=== PATIENT | male | born 1995 | race Caucasian/White ===

== ENCOUNTER 2016-11-07 05:31 | Emergency (ER) | payer MEDICAID ==
[2016-11-07] MEDS ORDERED: Albuterol/Ipratropium Neb 3 ML AERS HHN ONE ×6 (05:34→07:26)
--- NOTE | 2016-11-07 05:57 | ED Physician Chart ---
Chief Complaint/HPI - Patient Information Date Seen:: 11/07/16 Time Seen:: 05:45 Chief Complaint:: shortness of breath History of Present Illness:: Patient developed shortness of breath and cough 2 days ago. His sputum has been yellow to brown. He denies fever. Patient is finishing his albuterol metered-dose inhaler. Allergies:: Allergies Allergy/AdvReac Type Severity Reaction Status Date / Time No Known Allergies Allergy Verified 11/07/16 05:35 Vitals:: Vital Signs - 8 hr 11/07/16 11/07/16 05:35 05:38 Temp 97.9 F HR 117 112 RR 23 20 BP 150/94 O2 Sat % 89 89 Historian:: Patient Review:: Nurse's Note Reviewed Review of Systems - Review of Systems General/Constitutional: No fever, No chills Skin: No skin lesions Head: No headache Eyes: No loss of vision ENT: No earache, Sore throat Neck: No neck pain, No swelling Cardio Vascular: No chest pain, No palpitations Pulmonary: SOB, Cough GI: No nausea, No vomiting, No diarrhea G/U: No dysuria Musculoskeletal: No bone or joint pain, No muscle pain Endocrine: No polyuria, No polydipsia Psychiatric: No prior psych history Hematopoietic: No bruising Allergic/Immuno: No urticaria Neurological: No syncope, No focal symptoms Past Medical History - Past Medical History Past Medical History: Asthma/COPD Family History: None Social History: Non Smoker, Alcohol, Other (drinks at least six pack of beer once a week) Surgical History: None Psychiatricy History: None Medication: Reviewed Family Medical History - Family Member Mother Ethnicity: Physical Exam - Physical Examination General/Constitutional: Well-developed, well-nourished, Alert, No distress Head: Atraumatic Eyes: Lids, conjuctiva normal, PERRL Skin: Nl inspection, No rash, No skin lesions, No ecchymosis, Well hydrated, No lymphadenopathy ENMT: External ears, nose nl, Lips, teeth, gums nl, Oropharynx nl Other ENMT comments:: Tonsils enlarged without exudate or increased erythema. Neck: No nuchal rigidity Respiratory: Nl effort/Exclusion Other Respiratory comments:: Decreased breath sounds and are 2 out of 4 extremity wheezing Cardio Vascular: RRR GI: No tenderness/rebounding/guarding : No CVA tenderness Extremities: Normal digits & nails Neuro/Psych: No focal deficits Misc: Normal back Assessment - Assessment General Assessment: At 0645 patient felt better but wished another breathing treatment; auscultation of the chest revealed 1.5/4 inspiratory and expiratory wheezing; pulse ox is 91% with deep breathing. Patient requested a prescription for albuterol solution as he has a machine at home. ED Septic Shock - . Is Septic Shock (SBP<90, OR Lactate>4 mmol\L) present?: No - <6hrs of presentation: Vital Signs: Vital Signs - 8 hr 11/07/16 11/07/16 05:35 05:38 Temp 97.9 F HR 117 112 RR 23 20 BP 150/94 O2 Sat % 89 89 Reassessment (Disposition) - Reassessment Reassessment Condition:: Improved - Diagnosis Diagnosis:: Acute viral syndrome; exacerbation asthma - Aftercare/Follow up Instructions Aftercare/Follow-Up Instructions:: Refer to Discharge Instructions Medication Prescribed:: Albuterol metered-dose inhaler to take 2 puffs every 4 hours when necessary prescribed; premature 60 mg daily for 4 days to take first dose tomorrow morning ; takes albuterol 2.5 mg per 3 mL normal saline 1 box #25 to use one every 4 hours as necessary - Patient Disposition Discharge/Transfer:: Home Condition at Disposition:: Stable, Improved
== END 2016-11-07 08:00 | disposition home or self-care (01) ==
LOC: ER 05:31
DX: J45.901 Unspecified asthma with (acute) exacerbation (principal); B34.9 Viral infection, unspecified; J44.9 Chronic obstructive pulmonary disease, unspecified
CPT/HCPCS: 94640; Z7502

== ENCOUNTER 2017-11-21 10:24 | Emergency (ER) | payer MEDICAID ==
[2017-11-21] MEDS ORDERED: Albuterol/Ipratropium Neb 3 ML AERS HHN ONE ×4 (10:46→11:22)
[2017-11-21 11:19] LABS: % BASOPHILS 0.6 % (0.0-2.0); % EOSINOPHILS 3.4 % (0.0-5.0); EOSINOPHILE ABSOLUTE 0.3 Th/cmm (0.1-0.4); HEMATOCRIT 48.9 % (41.0-60); HEMOGLOBIN 16.2 gm/dL (12-16); LYMPHOCYTE ABSOLUTE 3.3 Th/cmm (1.5-3.0); MEAN CELL VOLUME 82.4 fl (80-99); MEAN CORPUSCULAR HEMOGLOBIN 27.4 pg (26.0-30.0); MEAN CORPUSCULAR HGB CONC 33.2 pg (28.0-36.0); MEAN PLATELET VOLUME 9.1 fl; MONOCYTE ABSOLUTE 0.5 Th/cmm (0.3-1.0); NEUTROPHILE ABSOLUTE 4.1 Th/cmm (1.8-8.0); PLATELET COUNT 275 Th/cmm (150-400); RED BLOOD COUNT 5.93 Mil/cmm (4.30-5.70); RED CELL DISTRIBUTION WIDTH 12.3 % (11.5-20.0); WHITE BLOOD COUNT 8.2 Th/cmm (4.8-10.8)
--- NOTE | 2017-11-21 11:24 | ED Physician Chart ---
ED Chief Complaint/HPI - Patient Information Date Seen:: 11/21/17 Time Seen:: 10:40 Chief Complaint:: shortness of breath History of Present Illness:: this is a 22 yo male with a second visit to this er for shortness of breath and chest congestion with a history of only asthma. he denies smoking. Allergies:: Allergies Allergy/AdvReac Type Severity Reaction Status Date / Time No Known Allergies Allergy Verified 11/07/16 05:35 Vitals:: Vital Signs - 8 hr 11/21/17 11/21/17 10:30 10:55 Temp 98.2 F HR 113 110 RR 21 17 BP 125/71 O2 Sat % 91 94 Historian:: Patient Review:: Nurse's Note Reviewed ED Review of Systems - Review of Systems General/Constitutional: No fever, No chills, No weight loss, No weakness, No diaphoresis, No edema, No loss of appetite Skin: No skin lesions, No rash, No bruising Head: No headache, No light-headedness Eyes: No loss of vision, No pain, No diplopia ENT: No earache, No nasal drainage, No sore throat, No tinnitus Neck: No neck pain, No swelling, No thyromegaly, No stiffness, No mass noted Cardio Vascular: No chest pain, No palpitations, No PND, No orthopnea, No edema Pulmonary: SOB, Cough, No sputum, Wheezing GI: No nausea, No vomiting, No diarrhea, No pain, No melena, No hematochezia, No constipation, No hematemesis G/U: No dysuria, No frequency, No hematuria Musculoskeletal: No bone or joint pain, No back pain, No muscle pain Endocrine: No polyuria, No polydipsia Psychiatric: No prior psych history, No depression, No anxiety, No suicidal ideation Hematopoietic: No bruising, No lymphadenopathy Allergic/Immuno: No urticaria, No angioedema Neurological: No syncope, No focal symptoms, No weakness, No paresthesia, No headache, No seizure, No dizziness, No confusion, No vertigo ED Past Medical History - Past Medical History Obtainable: Yes Past Medical History: Asthma/COPD Family History: None Social History: Non Smoker, Alcohol, No Drug Use Surgical History: None Psychiatricy History: None Medication: Reviewed Family Medical History - Family Member Mother History Unknown: Yes Ethnicity: Hx Family Cancer: No Hx Family Coronary Artery Disease: No Hx Family Congestive Heart Failure: No Hx Family Hypertension: No Hx Family Diabetes: No Hx Family Seizures: No Hx Family AIDS: No Hx Family HIV: No Hx Family Psychiatric Problems: No Hx Family Tuberculosis: No ED Physical Exam - Physical Examination General/Constitutional: Awake, Well-developed, well-nourished, Alert, No distress, GCS 15, Non-toxic appearing, Ambulatory Head: Atraumatic Eyes: Lids, conjuctiva normal, PERRL, EOMI Skin: Nl inspection, No rash, No skin lesions, No ecchymosis, Well hydrated, No lymphadenopathy ENMT: External ears, nose nl, Nasal exam nl, Lips, teeth, gums nl Neck: Nontender, Full ROM w/o pain, No JVD, No nuchal rigidity, No bruit, No mass, No stridor Respiratory: Nl effort/Exclusion, Clear to Auscultation Other Respiratory comments:: there are bilateral ronchi heard some wheezes heard also. Cardio Vascular: RRR, No murmur, gallop, rubs, NL S1 S2 GI: No tenderness/rebounding/guarding, No organomegaly, No hernia, Normal BS's, Nondistended, No mass/bruits, No McBurney tenderness : No CVA tenderness Extremities: No tenderness or effusion, Full ROM, normal strength in all extremities, No edema, Normal digits & nails Neuro/Psych: Alert/oriented, DTR's symmetric, Normal sensory exam, Normal motor strength, Judgement/insight normal, Mood normal, Normal gait, No focal deficits Misc: Normal back, No paraspinal tenderness ED Labs/Radiology/EKG Results - Lab Results Results: Laboratory Results - last 24 hr 11/21/17 11/21/17 11/21/17 11:05 11:05 11:05 WBC 8.2 RBC 5.93 H Hgb 16.2 Hct 48.9 MCV 82.4 MCH 27.4 MCHC Differential 33.2 RDW 12.3 Plt Count 275 MPV 9.1 Neutrophils % 50.0 Lymphocytes % 40.0 Monocytes % 6.0 Eosinophils % 3.4 Basophils % 0.6 Sodium 140 Potassium 3.4 L Chloride 106 Carbon Dioxide 25.5 Anion Gap 11.9 BUN 14 Creatinine 0.9 Est GFR ( Amer) > 60.0 Est GFR (Non-Af Amer) > 60.0 BUN/Creatinine Ratio 15.6 Glucose 129 H Calcium 9.4 Total Bilirubin 0.4 AST 20 ALT 23 Alkaline Phosphatase 92 Troponin I 0.01 Total Protein 7.2 Albumin 4.3 Globulin 2.9 Albumin/Globulin Ratio 1.5 TSH Urine Source Urine Color Urine Clarity Urine pH Ur Specific Mel[place] Urine Protein Urine Glucose (UA) Urine Ketones Urine Blood Urine Nitrate Urine Bilirubin Urine Urobilinogen Ur Leukocyte Esterase 11/21/17 11/21/17 11:05 11:40 WBC RBC Hgb Hct MCV MCH MCHC Differential RDW Plt Count MPV Neutrophils % Lymphocytes % Monocytes % Eosinophils % Basophils % Sodium Potassium Chloride Carbon Dioxide Anion Gap BUN Creatinine Est GFR ( Amer) Est GFR (Non-Af Amer) BUN/Creatinine Ratio Glucose Calcium Total Bilirubin AST ALT Alkaline Phosphatase Troponin I Total Protein Albumin Globulin Albumin/Globulin Ratio TSH 0.85 Urine Source CLEAN C Urine Color YELLOW Urine Clarity CLEAR Urine pH 6.0 Ur Specific [place] 1.025 Urine Protein NEGATIVE Urine Glucose (UA) NEGATIVE Urine Ketones NEGATIVE Urine Blood NEGATIVE Urine Nitrate NEGATIVE Urine Bilirubin NEGATIVE Urine Urobilinogen 0.2 Ur Leukocyte Esterase NEGATIVE - Radiology Results Results: ct scan = nad chest x-ray = bilateral increased marking. ED Assessment - Assessment General Assessment: asthma attack ED Septic Shock - . Is Septic Shock (SBP<90, OR Lactate>4 mmol\L) present?: No - <6hrs of presentation: Vital Signs: Vital Signs - 8 hr 11/21/17 11/21/17 10:30 10:55 Temp 98.2 F HR 113 110 RR 21 17 BP 125/71 O2 Sat % 91 94 ED Reassessment (Disposition) - Reassessment Reassessment Condition:: Improved - Diagnosis Diagnosis:: acute asthma attack bronchitis - Aftercare/Follow up Instructions Aftercare/Follow-Up Instructions:: Counseled pt regarding lab results/diagnosis & need follow up, Refer to Discharge Instructions, Counseled pt & family regarding lab results/diagnosis & need follow up - Patient Disposition Discharge/Transfer:: Home Condition at Disposition:: Improved
[2017-11-21 11:36] LABS: ALB/GLOB RATIO 1.5 (1.0-1.8); ALBUMIN 4.3 gm/dL (4.2-5.5); ALKALINE PHOSPHATASE 92 U/L (34-104); ANION GAP 11.9 (7.0-16.0); BILIRUBIN,TOTAL 0.4 mg/dL (0.3-1.0); BUN - UREA NITROGEN 14 mg/dL (7-25); CALCIUM SERUM 9.4 mg/dL (8.6-10.3); CARBON DIOXIDE 25.5 mEq/L (21.0-31.0); CHLORIDE 106 mEq/L (98-107); CREATININE - SERUM 0.9 mg/dL (0.7-1.3); GFR AFRICAN-AMERICAN > 60.0 ml/min (>90); GFR NON AFRICAN-AMERICAN > 60.0 ml/min; GLUCOSE 129 mg/dL (70-105); POTASSIUM SERUM 3.4 mEq/L (3.5-5.1); SGOT 20 U/L (13-39); SGPT/ALT 23 U/L (7-52); SODIUM SERUM 140 mEq/L (136-145); TOTAL PROTEIN,SERUM 7.2 gm/dL (6.0-8.3)
[2017-11-21 12:04] LABS: URINE SOURCE CLEAN C
[2017-11-21 12:06] LABS: URINE BILIRUBIN NEGATIVE (NEGATIVE); URINE BLOOD NEGATIVE (NEGATIVE); URINE GLUCOSE (UA) NEGATIVE (NEGATIVE); URINE KETONE NEGATIVE (NEGATIVE); URINE LEUKOCYTE ESTERASE NEGATIVE (NEGATIVE); URINE NITRATE NEGATIVE (NEGATIVE); URINE PROTEIN NEGATIVE (NEGATIVE); URINE UROBILINOGEN 0.2 E.U./dL (0.2 - 1.0)
[2017-11-21 12:27] LABS: URINE CLARITY CLEAR (CLEAR); URINE COLOR YELLOW
[2017-11-21 14:28] LABS: URINE MICROSCOPIC INDICATED? YES
[2017-11-21 14:31] LABS: URINE BACTERIA OCCASIONAL /hpf (NONE SEEN); URINE EPITHELIAL CELLS FEW /lpf (FEW); URINE RBC NONE SEEN /hpf (0-5); URINE WBC 0-2 /hpf (0-5)
--- NOTE | 2017-11-22 10:18 | Diagnostic Imaging Report ---
CT scan of the chest without intravenous contrast History: Congestion Total DLP equals 262 CTDI equals 6.4 Axial sections were obtained from a level above the clavicles down to a level below the diaphragm. Exam the mediastinum demonstrates preservation of normal fat planes about the major vascular landmarks. No abnormal masses. Specifically no lymphadenopathy. No abnormal focal pulmonary parenchymal masses or nodules are seen. The hilar regions appear normal. No pleural effusions are seen. Impression: No acute abnormalities
--- NOTE | 2017-11-22 10:25 | Diagnostic Imaging Report ---
Portable chest x-ray Time: 1114 History: Congestion Allowing for portable technique the heart size is normal. No focal pulmonary parenchymal processes. No hilar or mediastinal abnormalities. Impression: No acute abnormalities.
== END 2017-11-21 13:42 | disposition home or self-care (01) ==
LOC: ER 10:24
DX: J45.909 Unspecified asthma, uncomplicated (principal)
CPT/HCPCS: 99285; 96372 ×2; 94640 ×2; 71045; 71250; 84484; 36415; 84443; 85025; 81001; 80053; 87040 ×2; J0696; J2930